=== PATIENT | male | born 1955 | race Caucasian/White ===

== ENCOUNTER → 2022-10-31 13:55 | Outpatient (CLI) | payer OTHER, SELFPAY ==
--- NOTE | 2022-10-31 13:57 | DI.MRI.S_ITS ---
PROCEDURE: MR LUMBAR SPINE WO CON INDICATIONS: Lumbar radiculopathy TECHNIQUE: Noncontrast sagittal T1 spin echo and T2 fast echo, sagittal STIR, and T2 fast spin echo through the lumbar spine. In cases with scoliosis, additional coronal T2 fast spin echo may be performed. COMPARISON: [facility], RG, XR L-SPINE 4-6V, 08/12/2022, 16:22. FINDINGS: Image quality: Excellent. Alignment and Curvature: 5 lumbar type vertebral bodies are present by plain film. 4 mm of retrolisthesis of L2 on L3. 3 mm retrolisthesis of L3 on L4. 2 mm of retrolisthesis of L4 on L5. 6 mm of retrolisthesis of L5 on S1. There is loss of normal lumbar lordosis. Bone Marrow: Marrow is of normal overall signal. No acute vertebral body compression fractures. Mild reactive signal throughout the endplates of the lumbar and lower thoracic spine. Spinal Cord: Conus medullaris terminates at the lower L1 level. Visualized cord demonstrates normal signal and size. Paraspinous Soft Tissues: No paravertebral masses. T12-L1: Mild disc height loss and desiccation. Mild facet and ligamentum flavum hypertrophy. Mild epidural lipomatosis. Mild canal stenosis. Mild bilateral foraminal stenosis. L1-L2: Mild disc desiccation and diffuse disc bulge. Mild facet and ligamentum flavum hypertrophy. Mild epidural lipomatosis. Mild canal stenosis. Mild bilateral foraminal stenosis. L2-L3: Mild disc height loss. Moderate disc desiccation. Moderate diffuse disc bulge with superimposed central extrusion which extends inferiorly in the anterior epidural space. Mild facet and ligamentum flavum hypertrophy. Mild epidural lipomatosis. There is moderate to severe canal stenosis. Mild bilateral foraminal stenosis. There is mild posterolateral deviation of the right L3 nerve root within the lateral recess. L3-L4: Moderate disc height loss and desiccation. Moderate diffuse disc bulge with superimposed left far lateral broad-based protrusion. Mild facet and ligamentum flavum hypertrophy. Mild epidural lipomatosis. Severe canal stenosis. Moderate subarticular foraminal stenosis bilaterally. L4-L5: Moderate disc height loss and desiccation. Moderate diffuse disc bulge with superimposed broad-based right posterolateral protrusion. Mild facet and ligamentum flavum hypertrophy. Mild epidural lipomatosis. Severe canal stenosis. Moderate bilateral foraminal stenosis. L5-S1: Severe disc height loss and desiccation. Moderate diffuse disc bulge. Mild facet and ligamentum flavum hypertrophy. Mild canal stenosis. Moderate to severe bilateral foraminal stenosis. Bilateral L5 nerve root compression. IMPRESSION: 1. Multilevel degenerative disc and facet disease, as well as ligamentum flavum hypertrophy and epidural lipomatosis. 2. Multilevel canal stenoses, worst at L2-L3 , L3-L4, and L4-L5 as described above. 3. Multilevel foraminal stenoses, worst at L5-S1 where there is associated intraforaminal nerve root compression. 4. L2-L3 disc extrusion causing mild deviation of the right L3 nerve root. 5. Recommend correlation with clinical symptoms to ascertain relevance of these findings. Dictated by: Brooke Akhtar M.D. on 11/02/2022 at 8:31 Approved by: Brooke Akhtar M.D. on 11/02/2022 at 8:36
== END ==
PROVIDERS: PCP Internal Medicine; Referring Provider Physical Medicine & Rehabilitation; Visit Provider Physical Medicine & Rehabilitation
DX: M47.27 Other spondylosis with radiculopathy, lumbosacral region (principal); M47.26 Other spondylosis with radiculopathy, lumbar region; M48.061 Spinal stenosis, lumbar region without neurogenic claudication; M48.07 Spinal stenosis, lumbosacral region; M51.16 Intervertebral disc disorders with radiculopathy, lumbar region; M51.17 Intervertebral disc disorders with radiculopathy, lumbosacral region
CPT/HCPCS: 72148

== ENCOUNTER → 2023-11-20 09:39 | Outpatient (CLI) | payer OTHER, SELFPAY ==
--- NOTE | 2023-11-20 09:40 | DI.CT.S_ITS ---
PROCEDURE: CT SHOULDER LEFT WITHOUT CON INDICATIONS: COMPLETE TEAR LEFT ROTATOR CUFF TECHNIQUE: Noncontrast 0.75 mm thick sections acquired from the acromioclavicular joint to the inferior scapula, with coronal and sagittal reformatting. COMPARISON: Outside Film, CR, XR SHOULDER 2+ VIEWS BILATERAL, 05/15/2023, 13:05. Outside Film, MR, MR SHOULDER LEFT WITHOUT CONTRAST, 06/02/2023, 17:16. FINDINGS: Image quality: Excellent. Bones: No acute fracture or dislocation. Tiny ossific density adjacent to the glenoid likely represents sequela of degenerative change versus remote injury (5/76). Moderate glenohumeral and acromioclavicular joint space narrowing and juxta-articular osteophytosis. Subchondral degenerative cystic lesions in the inferior aspect of the glenoid (6/127). Narrowing of the acromiohumeral interval. Partially visualized degenerative changes of the spine. No displaced rib fractures. Soft tissues: No enlarged lymph nodes by size criteria. Evaluation of the lungs is limited secondary to respiratory motion. Within these limitations, no definite suspicious pulmonary nodule or consolidation. Minimal calcification of the thoracic aorta. Partially visualized marked LAD coronary vessel calcifications. IMPRESSION: 1. No acute fracture or dislocation. 2. 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 3. Narrowing of the acromiohumeral interval compatible with known rotator cuff pathology, as seen on MRI dated June 02, 2023. 4. Partially visualized marked LAD coronary vessel calcifications. Consider Cardiology consultation. Dictated by: Dimas Fischer M.D. on 11/21/2023 at 7:29 Approved by: Dmias Fischer M.D. on 11/21/2023 at 7:35
== END ==
PROVIDERS: PCP Internal Medicine; Referring Provider Orthopaedic Surgery; Visit Provider Orthopaedic Surgery
DX: M75.122 Complete rotator cuff tear or rupture of left shoulder, not specified as traumatic (principal); M19.012 Primary osteoarthritis, left shoulder; I25.10 Atherosclerotic heart disease of native coronary artery without angina pectoris
CPT/HCPCS: 73200